=== PATIENT | male | born 1985 | race Two or more races ===

== ENCOUNTER 2022-08-30 22:32 | Emergency (ER) | payer MEDICAID ==
[~2022-08-30 22:32] MED LIST: ATOR10TA PO; DULA0.75 SQ; ERGO500014 PO; METF-442 PO; METR-147 PO; RAMI2.5C55 PO
--- NOTE | 2022-08-30 22:45 | NUR ---
Patient was called to be triaged but was not present in the waiting room or outside of ER.
--- NOTE | 2022-08-30 23:05 | NUR ---
Patient was called to be triaged but was not present in the waiting room or outside of ER.
--- NOTE | 2022-08-30 23:27 | NUR ---
Patient was called to be triaged but was not present in the waiting room or outside of ER. PATIENT WAS NOT TRIAGED OR SEEN BY [facility].
== END 2022-08-30 23:28 | disposition left against medical advice (07) ==
LOC: ER 22:35
DX: Z53.21 Procedure and treatment not carried out due to patient leaving prior to being seen by health care provider (principal)